=== PATIENT | female | born 1960 | race Caucasian/White ===

== ENCOUNTER 2020-08-09 13:54 | Outpatient (REF) | payer BC, SELFPAY | END 2020-08-09 13:55 | disposition home or self-care (01) | LOC: HO.LAB 13:54 | PROVIDERS: Visit Provider Internal Medicine | DX: Z20.828 Contact with and (suspected) exposure to other viral communicable diseases (principal) | CPT/HCPCS: C9803; U0003 ==

== ENCOUNTER 2020-08-29 11:15 | Outpatient (REF) | payer BC, SELFPAY | END 2020-08-29 11:16 | disposition home or self-care (01) | LOC: HO.LAB 11:15 | PROVIDERS: Visit Provider Internal Medicine | DX: Z20.822 Contact with and (suspected) exposure to COVID-19 (principal) | CPT/HCPCS: 36415; C9803; U0003 ==

== ENCOUNTER 2020-10-20 16:06 | Outpatient (REF) | payer BC, SELFPAY ==
--- NOTE | ~2020-10-20 | MM_ITS ---
EXAMINATION: MM SCREENING DIGITAL BREAST TOMOSYNTHESIS, BILATERAL CLINICAL INFORMATION: Screening. Asymptomatic. The lifetime risk of breast cancer based on the Tyrer-Cuzick Model is 13%. COMPARISON: Mammography: 11/06/2018, 06/20/2017, 11/22/2015 TECHNIQUE: Digital breast tomosynthesis is performed in both the craniocaudal and mediolateral oblique views along with computer-aided detection (CAD). Synthesized 2D images are generated from the tomosynthesis. Additional bilateral CC views are provided. FINDINGS: There are scattered areas of fibroglandular density (ACR BI-RADS breast composition Category b). Parenchymal pattern is similar to prior studies. Scattered asymmetries are stable. There is no interval mass or developing density or interval architectural abnormality. No abnormal calcifications. The axilla and skin contours are unremarkable. MM/MM tomosynthesis screening BI IMPRESSION: No significant changes from prior studies. ASSESSMENT: BI-RADS 2: Benign RECOMMENDATION: Routine annual mammography screening. This patient's information was entered into a reminder system with a target due date for their next mammogram.
== END 2020-10-20 16:07 | disposition home or self-care (01) ==
LOC: HO.MAMMO 16:06
DX: Z12.31 Encounter for screening mammogram for malignant neoplasm of breast (principal)
CPT/HCPCS: 77063; 77067

== ENCOUNTER 2021-03-22 14:07 | Outpatient (REF) | payer OTHER, SELFPAY ==
--- NOTE | ~2021-03-22 | XR_ITS ---
EXAMINATION: BILATERAL HAND EXAM. CLINICAL INFORMATION: Pain and bilateral hand. COMPARISON: None TECHNIQUE: 3 views each hand. FINDINGS: RIGHT HAND: There is no visible acute fracture, dislocation or subluxation. There is loss of PIP and DIP joint space with minimal periarticular spurring. No acute fracture, dislocation or subluxation seen. LEFT HAND: There is loss of PIP and DIP joint space all digits without any spurring, bony erosive changes or soft tissue swelling. No acute fracture, dislocation or subluxation seen. XR/XR hand LT min 3V IMPRESSION: Mild early degenerative changes bilateral PIP and DIP joints.
--- NOTE | ~2021-03-22 | XR_ITS ---
EXAMINATION: BILATERAL HAND EXAM. CLINICAL INFORMATION: Pain and bilateral hand. COMPARISON: None TECHNIQUE: 3 views each hand. FINDINGS: RIGHT HAND: There is no visible acute fracture, dislocation or subluxation. There is loss of PIP and DIP joint space with minimal periarticular spurring. No acute fracture, dislocation or subluxation seen. LEFT HAND: There is loss of PIP and DIP joint space all digits without any spurring, bony erosive changes or soft tissue swelling. No acute fracture, dislocation or subluxation seen. XR/XR hand RT min 3V IMPRESSION: Mild early degenerative changes bilateral PIP and DIP joints.
== END 2021-03-22 14:08 | disposition home or self-care (01) ==
LOC: HO.HOSX 14:07
PROVIDERS: Visit Provider Physician Assistant
DX: M19.041 Primary osteoarthritis, right hand (principal); M19.042 Primary osteoarthritis, left hand
CPT/HCPCS: 73130

== ENCOUNTER → 2021-05-07 13:56 | Outpatient (BNVA) | payer OTHER, SELFPAY | PROVIDERS: Visit Provider Orthopaedic Surgery ==

== ENCOUNTER 2021-07-03 16:23 | Outpatient (REF) | payer OTHER, SELFPAY ==
--- NOTE | ~2021-07-03 | MR_ITS ---
EXAMINATION: MR HAND WITHOUT AND WITH CONTRAST, RIGHT CLINICAL INFORMATION: Proximal right hand pain. COMPARISON: Right hand radiographs dated 03/22/2021 TECHNIQUE: Multisequence MR imaging of the right hand was obtained before and after the administration of 10 mL Gadavist IV contrast on a high-field strength scanner. FINDINGS: Evaluation is somewhat limited secondary to patient motion. BONE: No acute osseous abnormality. No acute fracture or dislocation. Minimal joint space narrowing with tiny marginal osteophytes redemonstrated at the proximal and distal interphalangeal joints. No associated degenerative cystic change or marrow edema. MUSCLES/TENDONS: The visualized flexor and extensor tendons are intact. LIGAMENTS: The collateral ligaments are intact. SOFT TISSUES: Along the palmar surface of the hypothenar eminence, there is an ovoid focus measuring 0.9 x 1.7 x 1.5 cm which demonstrates isointense T1 and hyperintense T2 signal with what appears to be an associated flow-void medially. This demonstrates diffuse postcontrast enhancement. Findings abut the neurovascular bundle which includes the ulnar artery, ulnar vein, and deep branch of the ulnar nerve. 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 No associated inflammatory change. No additional soft tissue mass or fluid collection. MR/MR hand RT wo/w con IMPRESSION: 1. Soft tissue lesion along the volar aspect of the hypothenar eminence adjacent to the neurovascular bundle which includes the ulnar artery, ulnar vein, and deep branch of the ulnar nerve. 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 No associated inflammatory change or additional soft tissue mass. 2. Mild degenerative arthritis within the proximal and distal interphalangeal joints. 3. No acute osseous abnormality.
== END 2021-07-03 16:24 | disposition home or self-care (01) ==
LOC: HO.MRI 16:23
PROVIDERS: Visit Provider Orthopaedic Surgery
DX: M79.89 Other specified soft tissue disorders (principal)
CPT/HCPCS: 73220; A9585

== ENCOUNTER 2021-10-22 14:23 | Outpatient (REF) | payer OTHER, SELFPAY ==
--- NOTE | ~2021-10-22 | US_ITS ---
EXAMINATION: ULTRASOUND EXTREMITY NONVASCULAR CLINICAL INFORMATION: Right hand mass. COMPARISON: Previous MRI of the hand June 2021. TECHNIQUE: Grayscale and color imaging of the soft tissues of the right volar hypothenar eminence. FINDINGS: There is a 1.7 x 1.6 x 1 cm solid hypoechoic oval shaped soft tissue mass. This demonstrates vascularity. 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 This is not suggestive of a ganglion or vascular malformation. 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
== END 2021-10-22 14:24 | disposition home or self-care (01) ==
LOC: HO.US 14:23
PROVIDERS: Visit Provider Orthopaedic Surgery
DX: M79.89 Other specified soft tissue disorders (principal)
CPT/HCPCS: 76882

== ENCOUNTER 2022-08-29 11:58 | Outpatient (REF) | payer OTHER, SELFPAY ==
--- NOTE | ~2022-08-29 | MM_ITS ---
EXAMINATION: MM SCREENING DIGITAL BREAST TOMOSYNTHESIS, BILATERAL CLINICAL INFORMATION: Screening. Asymptomatic. The lifetime risk of breast cancer based on the Tyrer-Cuzick Model is 9%. COMPARISON: Mammography: 10/20/2020, 11/06/2018, 06/20/2017, 11/22/2015 TECHNIQUE: Digital breast tomosynthesis is performed in both the craniocaudal and mediolateral oblique views along with computer-aided detection (CAD). Synthesized 2D images are generated from the tomosynthesis. Additional left CC view is provided. FINDINGS: There are scattered areas of fibroglandular density (ACR BI-RADS breast composition Category b). There are no significant masses, abnormal calcifications, or other abnormalities. Parenchymal pattern is similar to prior studies. There is no developing density or architectural abnormality. Scattered bilateral parenchymal asymmetries are stable. The axilla and skin contours are unremarkable. No significant changes. MM/MM tomosynthesis screening BI IMPRESSION: No mammographic evidence of malignancy. ASSESSMENT: BI-RADS 2: Benign RECOMMENDATION: Routine annual mammography screening. This patient's information was entered into a reminder system with a target due date for their next mammogram.
== END 2022-08-29 11:59 | disposition home or self-care (01) ==
LOC: HO.MAMMO 11:58
PROVIDERS: Visit Provider Nurse Practitioner Family
DX: Z12.31 Encounter for screening mammogram for malignant neoplasm of breast (principal)
CPT/HCPCS: 77063; 77067

== ENCOUNTER 2023-12-02 08:20 | Outpatient (REF) | payer MEDICAID, SELFPAY ==
--- NOTE | ~2023-12-02 | MM_ITS ---
EXAMINATION: MM SCREENING DIGITAL BREAST TOMOSYNTHESIS, BILATERAL CLINICAL INFORMATION: Screening. Asymptomatic. The patient is status post excision of the fibroadenoma of the right breast. COMPARISON: Mammography: This study is compared with prior exams dating back to 2019. TECHNIQUE: Digital breast tomosynthesis is performed in both the craniocaudal and mediolateral oblique views along with computer-aided detection (CAD). Synthesized 2D images are generated from the tomosynthesis. FINDINGS: There are scattered areas of fibroglandular density (ACR BI-RADS breast composition Category b). There are no significant masses, abnormal calcifications, or other abnormalities. There are postsurgical changes at the medial aspect of the right breast from prior excision of a fibroadenoma. MM/MM tomosynthesis screening BI IMPRESSION: No mammographic evidence of malignancy. ASSESSMENT: BI-RADS BI-RADS 2 - Benign Findings RECOMMENDATION: Routine annual mammography screening. 1 year F/U This examination should not preclude the clinical evaluation of a suspicious palpable abnormality. This patient's information was entered into a reminder system with a target due date for their next mammogram.
== END 2023-12-02 08:21 | disposition home or self-care (01) ==
LOC: HO.MAMMO 08:20
PROVIDERS: PCP Student in an Organized Health Care Education/Training Program; Visit Provider Student in an Organized Health Care Education/Training Program
DX: Z12.31 Encounter for screening mammogram for malignant neoplasm of breast (principal)
CPT/HCPCS: 77063; 77067

== ENCOUNTER → 2023-12-02 08:30 | Outpatient (BNV) | payer MEDICAID, SELFPAY | PROVIDERS: PCP Student in an Organized Health Care Education/Training Program; Visit Provider Radiology Diagnostic Radiology | DX: Z12.31 Encounter for screening mammogram for malignant neoplasm of breast (principal) | CPT/HCPCS: 77063; 77067 ==

== ENCOUNTER 2023-12-29 13:57 | Outpatient (REF) | payer MEDICAID, SELFPAY ==
[2023-12-29 17:35] VITALS: BP 134/59; PULSE 64; RESP 17; TEMP 36.1; O2SAT 96; BMI 37.1
[2023-12-29 17:40] VITALS: BP 140/68; PULSE 59
== END 2023-12-29 13:58 | disposition home or self-care (01) ==
LOC: HO.MS 13:57
PROVIDERS: PCP Student in an Organized Health Care Education/Training Program; Visit Provider Ophthalmology
PROC: (CPT 67840; principal; 2023-12-29 14:40)
DX: L72.3 Sebaceous cyst (principal); D23.122 Other benign neoplasm of skin of left lower eyelid, including canthus
CPT/HCPCS: 67840 ×2; 67810; 88304; 88305

== ENCOUNTER 2024-03-23 11:28 | Day surgery (SDC) | payer MEDICAID, SELFPAY ==
--- NOTE | 2024-03-22 09:03 | P.CONAN_ITS ---
Documented by User: Sharon Latham NP 03/22/24 11:50 HPI - Anesthesia Eval Consult details Narrative: 63yo F for Colonoscopy Anesthesia Pre-Procedure Meds Is the patient on any of the following meds?: GLP1/DPP4 PMFSH Active Problems Active Problems: All Active Problems Arthritis of carpometacarpal (CMC) joint of left thumb (Acute) Mass of soft tissue of right upper extremity (Acute) Arthritis of both hands (Acute) Past Medical History Medical History Carpal tunnel syndrome Abnormal colonoscopy Chronic idiopathic urticaria GERD (gastroesophageal reflux disease) HX: benign breast biopsy Fatty liver HTN (hypertension) Surgical History Surgical History H/O abdominoplasty S/P lumpectomy, right breast History of cholecystectomy H/O esophagogastroduodenoscopy Social History Social History Patient Tobacco Use Status: Never used Tobacco Use of substances other than those prescribed or required for medical reasons: No Are you DNR?: No Advance Directives: No Advance Directives Information Provided: Yes Current occupational status: employed 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 Allergies Allergy/AdvReac Type Severity Reaction Status Date / Time Cephalosporins Allergy Intermediate ARTHRITIC Verified 03/23/24 11:41 [CEPHALOSPORINS] PAIN acetaminophen [Percocet] Allergy Unknown nausea and Verified 03/23/24 11:41 vomiting cephalexin Allergy Unknown Unknown Verified 03/23/24 11:41 oxycodone [Percocet] Allergy Unknown nausea and Verified 03/23/24 11:41 vomiting SEASONAL ALLERGIES Allergy Intermediate NASAL Uncoded 03/23/24 11:41 CONGESTION From PERCOCET Allergy Mild N/V Uncoded 03/23/24 11:41 Cephadyn Allergy Unknown Unknown Uncoded 03/23/24 11:41 corn Allergy Unknown Hives Uncoded 03/23/24 11:41 percocet Allergy Unknown Nausea and Uncoded 03/23/24 11:41 Vomiting Home Medications ?Medication ?Instructions ?Recorded ?Confirmed ?Last Taken ?Type Ozempic 03/22/24 03/22/2403/08/24 History fluticasone propionate 50 1 spray intranasal DAILY 03/22/24 Unknown History mcg/actuation nasal spray,suspension nystatin 100,000 unit/gram topical topical QID 03/22/24 Unknown History cream omeprazole 20 mg capsule,delayed 20 mg PO QAM 03/22/24 03/23/24 03/21/24 History release Claritin 03/23/24 03/23/24 03/23/24 History Assessment and Plan Assessment Anesthesia Assessment: Chart Reviewed Documented by User: Tez Kathleen MD 03/23/24 14:24 HPI - Anesthesia Eval Anesthesia Pre-Procedure Meds If yes to any meds - educate patient: Pt education - increased risk of aspiration and/or euvolemic DKA [facility] Past Medical History Medical History Carpal tunnel syndrome Abnormal colonoscopy Chronic idiopathic urticaria GERD (gastroesophageal reflux disease) HX: benign breast biopsy Fatty liver HTN (hypertension) Family History Family history of problems with anesthesia: No Surgical History Surgical History H/O abdominoplasty S/P lumpectomy, right breast History of cholecystectomy H/O esophagogastroduodenoscopy History of Problems with Anesthesia: No Social History Social History Patient Tobacco Use Status: Never used Tobacco Use of substances other than those prescribed or required for medical reasons: No Are you DNR?: No Advance Directives: No Advance Directives Information Provided: Yes Current occupational status: employed 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 Allergies Allergy/AdvReac Type Severity Reaction Status Date / Time Cephalosporins Allergy Intermediate ARTHRITIC Verified 03/23/24 11:41 [CEPHALOSPORINS] PAIN acetaminophen [Percocet] Allergy Unknown nausea and Verified 03/23/24 11:41 vomiting cephalexin Allergy Unknown Unknown Verified 03/23/24 11:41 oxycodone [Percocet] Allergy Unknown nausea and Verified 03/23/24 11:41 vomiting SEASONAL ALLERGIES Allergy Intermediate NASAL Uncoded 03/23/24 11:41 CONGESTION From PERCOCET Allergy Mild N/V Uncoded 03/23/24 11:41 Cephadyn Allergy Unknown Unknown Uncoded 03/23/24 11:41 corn Allergy Unknown Hives Uncoded 03/23/24 11:41 percocet Allergy Unknown Nausea and Uncoded 03/23/24 11:41 Vomiting Home Medications ?Medication ?Instructions ?Recorded ?Confirmed ?Last Taken ?Type Ozempic 03/22/24 03/22/24 03/08/24 History fluticasone propionate 50 1 spray intranasal DAILY 03/22/24 Unknown History mcg/actuation nasal spray,suspension nystatin 100,000 unit/gram topical topical QID 03/22/24 Unknown History cream omeprazole 20 mg capsule,delayed 20 mg PO QAM 03/22/24 03/23/24 03/21/24 History release Claritin 03/23/24 03/23/24 03/23/24 History Exam Airway Mallampati Class: II TM Dist: >3cm Neck ROM: Full Loose/Missing/Broken Teeth: Yes Assessment and Plan Assessment Anesthesia Assessment: Anesthesia Plan Discussed Final Anesthetic Review Family History of Problems with Anesthesia: No History of Problems with Anesthesia: No NPO: Yes ASA Class: III Final Preanesthetic Review: No Changes in Pt Med Stat, Meds/Allgs Chart Reviewed, Consent Obtained/Reviewed and Anes Risks/Benef Reviewed Patient Risk: Intermediate Procedure Risk: Low Anesthetic Plan Anesthetic Plan: MAC: Disposition: Standard PACU
--- OUTSIDE RECORDS SUMMARY | 2024-03-23 11:30 | XMS_ITS ---
Author Organization [facility] Address [address] [place] [phone] Care Team Providers Care Letterpress Setter Name Role Phone Ellen Gray M.D. Primary Care Provider UnavailEric Fan Jr REASON FOR VISIT screening Encounters Encounter Location Date Provider Diagnosis [facility] [place] [address] [place] [id number] 03/23/2024 Eric Marina Jr PLAN OF TREATMENT Next Appt Details Provider Name:Eric casey Jr, 03/23/2024 12:30:00 PM, [address] [place] [address], [phone],
--- OUTSIDE RECORDS SUMMARY | 2024-03-23 11:30 | XMS_ITS | Patient Health Record ---
Author Organization [facility] Address [address] [place] [address] Care Team Providers Care Training Administrator Name Role Phone Ellen Gray M.D. Primary Care Provider Eric Field Jr Unavailable ALLERGIES Allergen (clinical drug ingredient) Drug/Non Drug Allergy documented on EMR Reaction Allergy Type Onset Date Status KEFLEX (uncoded) Unknown Allergy Act tesfaye REASON FOR REFERRAL Referring Provider First Name Ellen Referring Provider Last Name Isaac Referred Organization [facility] Referred Provider Eric Marina Jr Referred Address [address] [place] [address],[address],[place], [place],[address], Referred Provider Specialty Gastroentero logy General Notes Janice Feliz 024 11:35:57 AM EDT > requested a [facility] referral from the [facility] for an office visit with Dr. Birmingham on 03-15-2024 for a screening colon [phone] (left message for Jeana) Referral Priority Routine MEDICATIONS Medication SIG (Take, Route, Frequency, Duration) Notes Start Date End Date Status Omeprazole 20 MG 1 capsule Orally Onc e a day for 90 days 02/19/2012 Active Ibuprofen 800 MG 1 tablet with food o r milk as needed Orally Three times a day/prn prn 09/11/2018 Active Claritin 10 MG 1 tablet Orally Once a day for 30 day(s) 09/11/2018 Active Sutab 6161-492-494 MG [address] fir [address] dose the evening before and second dose the morning of colonoscopy Orally Twice a day for 1 day(s) 03/15/2024 Active Ozempic (0.25 or 0.5 MG/DOSE) 2 MG/3ML as directed Subcutaneous Active IMMUNIZATIONS Vaccine Route Administration Date Status Comme nts Influenza Unknown 06/16/2018 Administered Influenza Unknown 03/15/2024 Refused SOCIAL HISTORY Sex Assigned At : Social History Observation Description Sex Assigned At Unknown PROBLEMS Problem Type ICD Code Onset Dates Problem Status W/U Status Risk SNOMED Code Notes Problem Colon cancer screening (Z12.11) Active confirmed 437602355 Problem Gastroesophageal reflux disease without esophagitis (K21.9) Active confirmed 969199150 Problem Right upper quadrant abdominal pain (R10.11) Active confirmed 186777030 VITAL SIGNS Temperature 97.7 degrees Fahrenheit 03/15/2024 Blood pressure diastolic 00 mm Hg 03/15/2024 Height 66 in 03/15/2024 Blood pressure systolic 000 mm Hg 03/15/2024 Weight 231 lbs 03/15/2024 BMI 37.28 kg/m2 03/15/2024 Encounters Encounter Location Date Provider Diagnosis [facility] [place] [address] [place] [id number] 03/23/2024 Eric Marina Jr [facility] [address] [place] [phone] 03/15/2024 Eric Marina Jr Gastroesophageal reflux disease without esophagitis K21.9 and Colon cancer screening Z12.11 [facility] [address] [place] [phone] 03/15/2024 Eric Marina Jr ASSESSMENTS Encounter Date Diagnosis Assessment Notes Treatment Notes Treatment Clinical Notes 03/15/2024 Colon cancer screeni ng (ICD-10 - Z12.11) Colonoscopy material was printed 03/15/2024 Gastroesophageal reflux disease without esophagitis (ICD-10 - K21.9) PLAN OF TREATMENT Pending Test Test Name Order Date LIVER PROFILE 10/11/2011 AMYLASE 10/11/2011 CBC w/o DIFF 10/11/2011 Future Test Test Name Order Date COLONOSCOPY 11/12/2012 UPPER GI ENDOSCOPY 09/11/2018 COLONOSCOPY 09/11/2018 COLONOSCOPY 03/15/2024 Next Appt Details Provider Name:Eric casey Jr, 03/23/2024 12:30:00 PM, [address] [place] [address] [place], [phone], Insurance Providers Payer Name Payer Address Payer Phone Subscriber Number Group Number Insured Name Patient Relationship to Insured Coverage Start Date Coverage End Date [employer] OF [employer] [facility] [address] [place] [phone] [id number] OMA LIZAMA Self - patient is the insured MEDICAL (GENERAL) HISTORY Medical History History ICD Code Hypertension Elevated blood sugar Fatty liver Benign breast biopsies Gastroesophageal reflux dise ase, EGD, no Mcfarland's esophagus or H. pylori. Colonoscopy 12/11, normal, five-year foll owup for prior history of polyps Chronic idiopathic urticaria Surgical History Surgery Date(Month/Year) cholecystectomy lumpectomy, right breast abdominalplasty Right carpal tunnel repair
--- OUTSIDE RECORDS SUMMARY | 2024-03-23 11:30 | XMS_ITS ---
Author Organization [facility] Address [address] [place] [phone] Care Team Providers Care Fire Extinguisher Tester Name Role Phone Ellen Gray M.D. Primary Care Provider Eric Field Jr ALLERGIES Allergen (clinical drug ingredient) Drug/Non Drug Allergy documented on EMR Reaction Allergy Type Onset Date Status KEFLEX (uncoded) Unknown Allergy Act tesfaye REASON FOR VISIT Continued care of GI problems MEDICATIONS Medication SIG (Take, Route, Frequency, Duration) Notes Start Date End Date Status Omeprazole 20 MG 1 capsule Orally Onc e a day for 90 days 02/19/2012 Active Claritin 10 MG 1 tablet Orally Once a day for 30 day(s) 09/11/2018 Active Sutab 5813-068-673 MG [address] dose the evening before and second dose the morning of colonoscopy Orally Twice a day for 1 day(s) 03/15/2024 Active Ozempic (0.25 or 0.5 MG/DOSE) 2 MG/3ML as directed Subcutaneous Active Ibuprofen 800 MG 1 tablet with food o r milk as needed Orally Three times a day/prn prn 09/11/2018 Active IMMUNIZATIONS Vaccine Route Administration Date Status Comme nts Influenza Unknown 03/15/2024 Refused VITAL SIGNS BMI 37.28 kg/m2 03/15/2024 Blood pressure systolic 000 mm Hg 03/15/20 24 Blood pressure diastolic 00 mm Hg 024 Height 66 in 03/15/2024 Temperature 97.7 degrees Fahrenheit 03/15/20 24 Weight 231 lbs 03/15/2024 Encounters Encounter Location Date Provider Diagnosis [facility] [address] [place] [address] 03/15/2024 Eric Marina Jr Gastroesophageal reflux disease without esophagitis K21.9 and Colon cancer screening Z12.11 ASSESSMENTS Encounter Date Diagnosis Assessment Notes Treatment Notes Treatment Clinical Notes 03/15/2024 Gastroesophageal reflux disease without esophagitis (ICD-10 - K21.9) 03/15/2024 Colon cancer screeni ng (ICD-10 - Z12.11) Colonoscopy material was printed PLAN OF TREATMENT Medication Medication Name Sig Start Date Stop Date Notes Sutab 1438-863-686 MG [address] dose the evening before and second dose the morning of colonoscopy Orally Twice a day for 1 day(s) 03/15/2024 Treatment Notes Assessment Notes Colon cancer screening Colonoscopy mater ial was printed Future Test Test Name Order Date COLONOSCOPY 03/15/2024 Next Appt Details Follow Up: 1 Year, Reason: Provider Name:Eric casey Jr, 03/23/2024 12:30:00 PM, [address] [place] [address] , [place], [place], [phone], Progress Notes * Examination Category Sub-Category Detail Notes General Examination GENERAL APPEARANCE: in no ac to distress HEAD: normocephalic EYES: sclera non-icteric NECK/THYROID: no lymphadenopathy HEART: S1, S2 normal, no mu rmurs CHEST: normal shape and exp ansion LUNGS: clear to auscultatio n bilaterally ABDOMEN: soft, nontender, non distended, bowel sounds present, no organomegaly SKIN: anicteric EXTREMITIES: no clubbing, cyanosi s, or edema PSYCH: cognitive function i ntact ORAL CAVITY: mucosa moist
--- OUTSIDE RECORDS SUMMARY | 2024-03-23 11:30 | XMS_ITS ---
Author Organization [facility] Address [address] [place] [phone] Care Team Providers Care Chief Concierge Name Role Phone Ellen Gray M.D. Primary Care Provider UnavailEric Fan Jr REASON FOR VISIT FYI Encounters Encounter Location Date Provider Diagnosis [facility] [address] [place] [phone] 03/15/2024 Eric Marina Jr PLAN OF TREATMENT Next Appt Details Provider Name:Eric casey Jr, 03/23/2024 12:30:00 PM, [address] [place] [address] , [place], [place], [phone],
--- OUTSIDE RECORDS SUMMARY | 2024-03-23 11:30 | XMS_ITS | Patient Health Record ---
Author Organization [facility] Address [address] [place] [address] Care Team Providers Care Journeyman Glazier Name Role Phone Win MARCELO, Josh Primary Care Provider Juan Carlos Lay Unavailable [phone] ALLERGIES Allergen (clinical drug ingredient) Drug/Non Drug Allergy documented on EMR Reaction Allergy Type Onset Date Status Ceftin joint pain Drug Allergy Active Keflex joint pain Drug Allergy Active acetaminophen / oxycodone Percocet nausea and vomiting Drug Allergy Active cefaclor Cefaclor Unknown Drug Allergy Active REASON FOR REFERRAL No Information MEDICATIONS Medication SIG (Take, Route, Fr equency, Duration) Notes Start Date End Date Status Omeprazole 20 MG 1 capsule Orally Onc e a day for 30 day(s) Active Claritin PRN Active SOCIAL HISTORY Tobacco Use: Social History Observation Description Date Details (start date - stop date) Never Smoker NA - NA Sex Assigned At : Social History Observation Description Sex Assigned At Unknown Tobacco Use/Smoking Question Answer Notes Are you a: nonsmoker Additional Findings: Tobacco Non-User Current no n-smoker Alcohol Screen Question Answer Notes Did you have a drink contain ing alcohol in the past year? Yes How often did you have a dri nk containing alcohol in the past year? Monthly or less (1 point) Points 1 Interpretation Negative Tobacco use other than smoking: Question Answer Notes Are you an other tobacco user? No PROBLEMS Problem Type ICD Code Onset Dates Problem Status W/U Status Risk SNOMED Code Notes Problem Primary osteoarthrit is, right ankle and foot (M19.071) Active confirmed Localized, prim robert osteoarthritis of the ankle and/or foot (270556134) Problem Other hammer toe(s) (acquired), right foot (M20.41) Active confirmed Acquired hammer toe of right foot (9170430080397663) PLAN OF TREATMENT Pending Test Test Name Order Date X ray : Foot, right 3V 05/23/2020 [id number] 04/07/2013 [id number] 03/11/2013 28307- Debride <25 sq cm 06/14/2013 15716-UMUALMY SKIN/TISSUE 03/29/2013, [id number]/INJECT, JOINT/BURSA 1 , [id number]/INJECT, JOINT/BURSA 0 10/17/2020 [id number] TENDON SHEATH/LIGAMENT 1 Insurance Providers Payer Name Payer Address Payer Phone Subscriber Number Group Number Insured Name Patient Relationship to Insured Coverage Start Date Coverage End Date [employer] [address] [place] [address] [id number] Titi Price Self - patient is the insured MEDICAL (GENERAL) HISTORY Medical History History ICD Code back pain reflux Chicken pox Surgical History Surgery Date(Month/Year) lumpectomy 1986 Ingrown Toe Nail 2012 [place] Reason Date[place] [facility] [place] [facility] [place] [facility] [place] Bilateral ankles 03/19/16
[2024-03-23 11:33] VITALS: BMI 36.2
[2024-03-23 11:53] VITALS: BP 130/76; PULSE 62; RESP 16; TEMP 36.8; O2SAT 96
[2024-03-23] MEDS: Lactated Ringers 1,000 ML 100 ML IVCONT (11:55)
--- NOTE | 2024-03-23 11:58 | PC.NURSE ---
Pt noted to have RBBB on tele. Dr Kathleen made aware. Awaitng orders.
--- NOTE | 2024-03-23 12:07 | MHC.SHP ---
Pre-Procedural Eval Section A - 24 Hr Update-Section A only Date of Service: 03/23/24 The patient is an INPATIENT: No The patient has been examined within 24 hours of the surgical procedure. The History & Physical has been completed within 30 days and I have reviewed it.: Yes Section B - Complete if H&P > 30 days Chief Complaint: screening Allergies: Allergies Allergy/AdvReac Type Severity Reaction Status Date / Time Cephalosporins Allergy Intermediate ARTHRITIC Verified 03/23/24 11:41 [CEPHALOSPORINS] PAIN acetaminophen [Percocet] Allergy Unknown nausea and Verified 03/23/24 11:41 vomiting cephalexin Allergy Unknown Unknown Verified 03/23/24 11:41 oxycodone [Percocet] Allergy Unknown nausea and Verified 03/23/24 11:41 vomiting SEASONAL ALLERGIES Allergy Intermediate NASAL Uncoded 03/23/24 11:41 CONGESTION From PERCOCET Allergy Mild N/V Uncoded 03/23/24 11:41 Cephadyn Allergy Unknown Unknown Uncoded 03/23/24 11:41 corn Allergy Unknown Hives Uncoded 03/23/24 11:41 percocet Allergy Unknown Nausea and Uncoded 03/23/24 11:41 Vomiting Plan I have reviewed the history and physical and performed a pertinent physical examination on my patient. No changes have occurred unless specified. Time Spent With Patient Time: Total time managing care of this patient today ____ minutes.
[2024-03-23 12:53] VITALS: BP 110/50; PULSE 62; RESP 16; TEMP 36.3; O2SAT 95
[2024-03-23 13:08] VITALS: BP 120/60; PULSE 67; RESP 18; TEMP 36.6; O2SAT 97
--- NOTE | 2024-03-23 13:33 | OP_ITS ---
DATE OF SERVICE: 03/23/2024 SURGEON: Eric Marina MD INDICATIONS: Colon cancer screening and prior history of adenomatous colon polyps. PREOPERATIVE DIAGNOSIS: POSTOPERATIVE DIAGNOSIS: PROCEDURE PERFORMED: Colonoscopy to the cecum. ESTIMATED BLOOD LOSS: COMPLICATIONS: ANESTHESIA: Medications, monitored anesthesia care. ASSISTANTS: SPECIMENS: DESCRIPTION OF PROCEDURE: History and physical performed. The risks and benefits of the procedure were explained to the patient. Informed consent was obtained. The patient was placed in the left lateral decubitus position. A digital rectal exam was performed and was found to be normal. The Olympus pediatric video colonoscope was introduced into the rectum and advanced to the cecum with the assistance of abdominal wall pressure. The cecum was identified by transillumination, palpation, and identification of ileocecal valve. Examination was performed. The scope was removed. She tolerated the procedure well and was returned to recovery area in stable condition. FINDINGS: The terminal ileum was not examined. The visualized colonic mucosa was normal. There was some liquid stool present in the cecum and descending/sigmoid colon, which limited the sensitivity examination for detection of small polyps. No polyps were identified. Retroflexed examination showed moderate-size internal hemorrhoids. IMPRESSION: Normal colonoscopy. RECOMMENDATION: 1. Follow up as needed. 2. Consider repeat colonoscopy in 3 years based on the limitations of today's exam. MD KATRIN Smith/JASON / [id number]
== END 2024-03-23 13:26 | disposition home or self-care (01) ==
PROVIDERS: PCP Student in an Organized Health Care Education/Training Program; Visit Provider Internal Medicine Gastroenterology
PROC: 0DJD8ZZ Inspection of Lower Intestinal Tract, Via Natural or Artificial Opening Endoscopic (ICD-10-PCS; CPT 45378; principal; 2024-03-23 12:30)
DX: Z12.11 Encounter for screening for malignant neoplasm of colon (principal); Z86.010 Personal history of colon polyps; K64.8 Other hemorrhoids; K21.9 Gastro-esophageal reflux disease without esophagitis; K76.0 Fatty (change of) liver, not elsewhere classified; I10 Essential (primary) hypertension; L50.1 Idiopathic urticaria; Z79.899 Other long term (current) drug therapy; Z79.85 Long-term (current) use of injectable non-insulin antidiabetic drugs; Z79.1 Long term (current) use of non-steroidal anti-inflammatories (NSAID); Z88.1 Allergy status to other antibiotic agents; Z90.49 Acquired absence of other specified parts of digestive tract; Z98.890 Other specified postprocedural states
CPT/HCPCS: 45378; J2704